=== PATIENT | female | born 1960 | race Two or more races ===

== ENCOUNTER 2020-04-05 08:38 | Day surgery (SDC) | payer OTHER | END 2020-04-05 14:55 | disposition home or self-care (01) | LOC: AMB-ENDOS 08:38 | PROVIDERS: ATTEND Colon & Rectal Surgery | DX: K62.89 Other specified diseases of anus and rectum (principal); K58.1 Irritable bowel syndrome with constipation; K64.1 Second degree hemorrhoids ==